=== PATIENT | female | born 1940 | race Caucasian/White ===

== ENCOUNTER 2017-07-25 12:32 | Emergency (ER) | payer OTHER ==
[~2017-07-25] VITALS: Ht 157.5 cm; Wt 39.5 kg
[~2017-07-25 12:32] MED LIST: ALENDRONATE SOD70 M2 PO; ASPIRIN EC325 M2 PO; AUGMENTIN 500-1 EACH PO; DILTIAZEM ER120 M2 PO; LISINOPRIL20 M1 PO; PREDNISONE10 M2 PO; PROAIR HFA8.5 GM INH; SPIRIVA RESPIMAT4 G1 INH; SYMBICORT 80-10.2 GM INH; TRAZODONE HCL50 M1 PO
--- NOTE | 2017-07-25 12:58 | ED DYSPNEA/ASTHMA COMPLAINT ---
History of Present Illness General Chief Complaint: General Adult Stated Complaint: PT HAS PNEUMONIA AND COUGH IS GETTING WORSE Source: patient Exam Limitations: no limitations Vital Signs & Intake/Output Vital Signs & Intake/Output Vital Signs Date Time Temp Pulse Resp B/P B/P Pulse O2 O2 Flow FiO2 Mean Ox Delivery Rate 07/25 1457 97.5 82 20 140/77 95 Room Air 07/25 1237 96.0 71 20 141/80 96 Room Air Allergies Coded Allergies: No Known Allergies (03/06/17) Reconcile Medications Albuterol Sulfate (Proair Hfa) 90 MCG HFA.AER.AD 2 PUF INH Q8 COPD . Alendronate Sodium 70 MG TABLET 1 TAB PO QMON OSTEOPOROSIS (Reported) in the morning, at least 30 minutes before the first food, beverage, or medication of the day Aspirin (Ecotrin*) 325 MG TABLET.DR 1 TAB PO DAILY HEART/BLOOD (Reported) Augmentin (Augmentin 500-125 Tablet) 500 MG-125 MG TABLET 500 MG PO Q12 pneumonia . Benzonatate 200 MG CAPSULE 1 CAP PO TIDPRN cough Budesonide/Formoterol Fumarate (Symbicort 80-4.5 Mcg Inhaler) 80 MCG-4.5 MCG/ ACTUATION HFA.AER.AD 2 PUF INH BID COPD . Diltiazem Cd (Diltiazem ER) 120 MG CAP.ER.DEG 1 TAB PO DAILY heart health . Lisinopril 20 MG TABLET 1 TAB PO DAILY BP (Reported) Prednisone 10 MG TABLET 1 TAB PO DAILY COPD .. Tiotropium [place] (Spiriva Respimat) 1.25 MCG/ACTUATION MIST.INHAL 2 PUFF INH BID COPD . Trazodone HCl 50 MG TABLET 25 MG PO Q8P PRN INSOMNIA .. Triage Note: PT TO ED WITH DAUGHTER FOR WORSENING COUGH. PT WITH RECENT PNA DIAGNOSIS, WAS ON PREDNISONE AND ABX, BUT NOT GETTING BETTER. PT IS 1 PPD SMOKER. Triage Nurses Notes Reviewed? yes Onset: Abrupt Duration: week(s):, constant Timing: recent history Severity: moderate, severe HPI: 77-year-old female comes into the emergency room for further evaluation of progressive cough that is been going on for the past few weeks. She saw her primary care doctor last week and was diagnosed with pneumonia. She finished of Augmentin. She has a history of COPD and is occurring every day smoker. About a [id number] history. She's had a cough going on for a long time. She denies any fever. She denies any vomiting. Denies any chest pain or shortness of breath. She comes in due to the progressive cough. (Praneeth Delcid) Past History Travel History Traveled to [place] past 21 day No Medical History Any Pertinent Medical History? see below for history Neurological: dementia Cardiovascular: hypertension Respiratory: COPD, pneumonia Renal: chronic kidney disease Musculoskeletal: osteoarthritis, osteoporosis History of MRSA: No History of VRE: No History of CDIFF: No Surgical History Surgical History: unobtainable Psychosocial History Who do you live with Patient/Self What is your primary language Czech Tobacco Use: Current Daily Use Daily Tobacco Use Amount/Type: => 5 Cigarettes daily ETOH Use: denies use Illicit Drug Use: denies illicit drug use Family History Hx Contributory? No (Praneeth Delcid) Review of Systems Review of Systems Constitutional: Reports: no symptoms. EENTM: Reports: see HPI. Respiratory: Reports: see HPI. Cardiovascular: Reports: no symptoms. GI: Reports: no symptoms. Genitourinary: Reports: no symptoms. Musculoskeletal: Reports: no symptoms. Skin: Reports: no symptoms. Neurological/Psychological: Reports: no symptoms. Hematologic/Endocrine: Reports: no symptoms. Immunologic/Allergic: Reports: no symptoms. All Other Systems: Reviewed and Negative (Praneeth Delcid) Physical Exam Physical Exam General Appearance: well developed/nourished, alert, awake Head: atraumatic Eyes: Bilateral: normal appearance. Ears, Nose, Throat: normal ENT inspection, hearing grossly normal Neck: normal inspection Respiratory: no respiratory distress, decreased breath sounds (slightly diminished) Cardiovascular: regular rate/rhythm Extremities: normal inspection Neurologic/Psych: awake, alert, oriented x 3, normal gait Skin: intact, normal color Core Measures ACS in differential dx? No CVA/TIA Diagnosis No Sepsis Present: No Sepsis Focused Exam Completed? No (Praneeth Delcid) Progress Differential Diagnosis: AMI, bronchitis, COPD, pulmonary embolism, pneumonia Plan of Care: Orders Procedure Date/time Status TROPONIN LEVEL 07/25 1258 Complete COMPREHENSIVE METABOLIC PANEL 07/25 1258 Complete CBC WITHOUT DIFFERENTIAL 07/25 1258 Complete EKG 07/25 1258 Active Laboratory Tests 07/25/17 1342: Anion Gap 11, Estimated GFR > 60, BUN/Creatinine Ratio 32.0 H, Glucose 106 H, Calcium 8.8, Total Bilirubin 0.5, AST 12 L, ALT 17, Alkaline Phosphatase 86, Troponin I < 0.01, Total Protein 6.8, Albumin 3.7, Globulin 3.1, Albumin/ Globulin Ratio 1.2, CBC w Diff NO MAN DIFF REQ, RBC 4.86, MCV 91.4, MCH 31.0, MCHC 33.9, RDW 13.7, MPV 6.1 L, Gran % 70.5, Lymphocytes % 19.2 L, Monocytes % 8.1, Eosinophils % 1.1, Basophils % 1.1, Absolute Granulocytes 9.1 H, Absolute Lymphocytes 2.5, Absolute Monocytes 1.0 H, Absolute Eosinophils 0.1, Absolute Basophils 0.1 Diagnostic Imaging: Viewed by Me: Radiology Read. Discussed w/RAD: Radiology Read. Radiology Impression: PATIENT: AIDESEPTEMBER PRESENT AGE: 77 PATIENT ACCOUNT NO: [id number] : 42 LOCATION: [facility] ORDERING PHYSICIAN: Praneeth ADKINS SERVICE DATE: 07/25/176 EXAM TYPE: RAD - XRY-CHEST XRAY, TWO VIEWS EXAMINATION: XR CHEST CLINICAL INFORMATION: Cough. Recent pneumonia. COPD. COMPARISON: Chest x-rays most recent prior dated 2017 TECHNIQUE: 2 views of the chest were obtained. FINDINGS: Hyperinflated lungs compatible with underlying COPD. No acute airspace opacity. Subsegmental atelectasis left base. Tortuous aorta and scoliosis of the spine. IMPRESSION: No acute pulmonary disease. DICTATED BY: Jimenez Lee MD DATE/TIME DICTATED:1406 DIRECTOR INDUSTRIAL NURSING:CARLOS A DATE/TIME TRANSCRIBED:07/25/171406 CONFIDENTIAL, DO NOT COPY WITHOUT APPROPRIATE AUTHORIZATION. <Electronically signed in Other Vendor System> SIGNED BY: Jimenez Lee MD 07/25/17 1411 Initial ED EKG: normal sinus rhythm, rate (61) (Lyndon ADKINS,Praneeth) Departure Departure Disposition: HOME OR SELF CARE Condition: Stable Clinical Impression Primary Impression: COPD (chronic obstructive pulmonary disease) Referrals: Jorge Hudson MD (PCP/Family) Additional Instructions: Follow-up with your primary care doctor. Take Tessalon Perles as prescribed. Return if any other concerns. Please go over all results of today's visit with your primary care doctor. Contact your primary care doctor to let them know you were here in the emergency room. There may be nonspecific findings which may not be related to your visit today here in the emergency room but may require further evaluation and chronic monitoring by your primary care doctor. If you had a laceration today the chance of foreign body always remains. You should follow-up with your primary care doctor for recheck in 3-5 days for a wound check. If you had an x-ray done there is a chance that a fracture could have been missed on initial read and you should follow-up with your primary care doctor for repeat x-rays if symptoms persist. If your blood pressure was elevated here in the emergency room please have rechecked by [facility] primary care doctor within the next 48. If you were prescribed a narcotic here in the emergency room or any type of controlled substances you're not allowed to drive while taking this medication or operate any type of heavy machinery. Narcotics can make you feel lightheaded dizziness nausea and can cause constipation. You may need to sheepskin pickler a stool softener. Thank you for choosing [facility] emergency room. Please return to the emergency room immediately if you have any other concerns worsening of symptoms. Departure Forms: Customer Survey General Discharge Information Prescriptions: Current Visit Scripts Benzonatate 1 CAP PO TIDPRN #[id number] CAP Comments 07/25/2017 4:10:18 PM Patient clinically looks well. Patient is no apparent distress. Patient is nontoxic-appearing. No evidence of pneumonia. Patient is a chronic smoker and continues to smoke and reports that she will continue to smoke and has no interest in quitting. I explained to her that her cough will continue to be chronic. Patient clinically looks well. Does not appear to be in any distress. She has good air exchange. (Praneeth Delcid) PA/DEPARTMENT DIRECTOR Co-Sign Statement Statement: ED Attending supervision documentation- [] I saw and evaluated the patient. I have also reviewed all the pertinent lab results and diagnostic results. I agree with the findings and the plan of care as documented in the PA's/DEPARTMENT DIRECTOR's documentation. [X] I have reviewed the ED Record and agree with the PA's/DEPARTMENT DIRECTOR's documentation. [] Additions or exceptions (if any) to the PAs/DEPARTMENT DIRECTOR's note and plan are summarized below: [] (Carrie ECHEVERRIA,Soto Valentin) Critical Care Note Critical Care Note Critical Care Time: non-applicable (Lyndon ADKINS,Praneeth)
[2017-07-25 13:52] LABS: ABSOLUTE BASOPHIL COUNT 0.1 /CUMM (0.0-0.2); ABSOLUTE EOSINOPHIL COUNT 0.1 /CUMM (0.0-0.7); ABSOLUTE GRANULOCYTE CT 9.1 /CUMM (1.4-6.5); ABSOLUTE LYMPH COUNT 2.5 /CUMM (1.2-3.4); BASOPHIL % 1.1 % (0.0-2.0); EOSINOPHIL % 1.1 % (0-5); GRANULOCYTE % 70.5 % (42.2-75.2); HEMATOCRIT 44.4 % (37-47); MEAN CORPUSCULAR HGB CONC 33.9 G/DL (33.0-37.0); MEAN CORPUSCULAR VOLUME 91.4 FL (81.0-99.0); MEAN PLATELET VOLUME 6.1 FL (7.4-10.4); PLATELET COUNT 489 /CUMM (130-400); RBC DISTRIBUTION WIDTH 13.7 % (11.5-14.5); RED BLOOD CELL CT 4.86 /CUMM (4.20-5.40); WHITE BLOOD CELL COUNT 12.9 /CUMM (4.8-10.8)
--- NOTE | 2017-07-25 14:11 | RADIOLOGY REPORT ---
EXAMINATION: XR CHEST CLINICAL INFORMATION: Cough. Recent pneumonia. COPD. COMPARISON: Chest x-rays most recent prior dated 07/14/2017 TECHNIQUE: 2 views of the chest were obtained. FINDINGS: Hyperinflated lungs compatible with underlying COPD. No acute airspace opacity. Subsegmental atelectasis left base. Tortuous aorta and scoliosis of the spine. IMPRESSION: No acute pulmonary disease.
[2017-07-25] MEDS ORDERED: BENZONATATE200 M1 PO (14:53)
[2017-07-25 14:57] VITALS: BP 140/77
== END 2017-07-25 14:57 ==
LOC: ERH 12:32
PROVIDERS: Physician Assistant Medical
DX: J44.9 Chronic obstructive pulmonary disease, unspecified (principal); F17.210 Nicotine dependence, cigarettes, uncomplicated
CPT/HCPCS: 71046; 93005; 93010